=== PATIENT | male | born 1970 | race Caucasian/White ===

== ENCOUNTER 2017-08-18 15:25 | Emergency (ER) | payer OTHER ==
[2017-08-18] MEDS: MORPHINE 4 MG/ML 1ML VIAL IV (16:00)
[2017-08-18] MEDS: ONDANSETRON 4MG/2ML VIAL (J2405) IV ×2 (16:00→16:56)
[2017-08-18] MEDS: NS 1,000 ML IV (16:55)
[2017-08-18] MEDS: PROPOFOL 200 MG/20 ML VIAL IV ×4 (16:59→17:04)
[2017-08-18] MEDS ORDERED: PROPOFOL 200 MG/20 ML VIAL IV (17:00)
== END 2017-08-18 18:07 | disposition home or self-care (01) ==
LOC: M ED 15:25
DX: S43.005A Unspecified dislocation of left shoulder joint, initial encounter (principal); I10 Essential (primary) hypertension; W01.0XXA Fall on same level from slipping, tripping and stumbling without subsequent striking against object, initial encounter; Y92.9 Unspecified place or not applicable; Y93.9 Activity, unspecified; Z87.891 Personal history of nicotine dependence; Z79.899 Other long term (current) drug therapy; Z88.0 Allergy status to penicillin
CPT/HCPCS: J2405

== ENCOUNTER 2017-08-27 05:41 | Emergency (ER) | payer OTHER ==
[2017-08-27] MEDS ORDERED: PROPOFOL 200 MG/20 ML VIAL As Ordered (06:09)
[2017-08-27] MEDS ORDERED: PROPOFOL 200 MG/20 ML VIAL IV (06:30)
== END 2017-08-27 07:17 | disposition home or self-care (01) ==
LOC: M ED 05:41
DX: M24.412 Recurrent dislocation, left shoulder (principal); Z88.0 Allergy status to penicillin; Z79.899 Other long term (current) drug therapy
CPT/HCPCS: 73020

== ENCOUNTER → 2017-10-07 | Outpatient (CLI) | payer OTHER ==
[~2017-10-07] MED LIST: CONRAY-43 43% 50ML VIAL (Q9960) As Ordered; PROHANCE 279.3MG/ML 5ML VIAL (A9576) As Ordered
== END ==
LOC: M RADPRO 12:07
DX: S43.085A Other dislocation of left shoulder joint, initial encounter (principal); M65.812 Other synovitis and tenosynovitis, left shoulder; M19.012 Primary osteoarthritis, left shoulder; M75.92 Shoulder lesion, unspecified, left shoulder; Z88.0 Allergy status to penicillin
CPT/HCPCS: 23350